=== PATIENT | male | born 1990 | race Two or more races ===

== ENCOUNTER 2022-02-03 20:54 | Emergency (ER) | payer OTHER ==
[~2022-02-03] VITALS: Ht 172.7 cm; Wt 83.9 kg
[2022-02-03] MEDS ORDERED: [UNRECOGNIZED DRUG - OTHER] (21:43)
[2022-02-03] MEDS ORDERED: SUDAFED (21:43)
[2022-02-04] MEDS ORDERED: DOLOGESIC 500-1 EACH PO (03:41)
== END 2022-02-04 04:29 ==
LOC: ER 20:54
DX: B34.8 Other viral infections of unspecified site (principal); Z20.822 Contact with and (suspected) exposure to COVID-19

== ENCOUNTER 2022-07-02 15:00 | Outpatient (CLI) | payer OTHER ==
[~2022-07-02 15:00] MED LIST: DOLOGESIC 500-1 EACH PO; SUDAFED; [UNRECOGNIZED DRUG - OTHER]
== END 2022-07-02 16:12 | disposition home or self-care (01) ==
LOC: LAB 15:00
PROVIDERS: ATTEND Obstetrics & Gynecology
DX: Z20.818 Contact with and (suspected) exposure to other bacterial communicable diseases (principal); Z20.828 Contact with and (suspected) exposure to other viral communicable diseases

== ENCOUNTER → 2024-10-25 | Emergency (ER) | payer OTHER ==
[~2024-10-25] VITALS: Ht 172.7 cm; Wt 81.6 kg
[~2024-10-25] MED LIST changes: +ACETAMINOPHEN 500 MG GEL..CAP PO ONE; +FAMOTIDINE/PF 20 MG/2 ML VIAL ONE; +ONDANSETRON HCL 2 MG/ML VIAL ONE; +ONDANSETRON ODT8 MG PO; +PEPCID AC20 MG PO
== END | disposition left against medical advice (07) ==
LOC: ER 03:31
DX: Z53.21 Procedure and treatment not carried out due to patient leaving prior to being seen by health care provider (principal)

== ENCOUNTER 2024-10-27 11:16 | Emergency (ER) | payer OTHER ==
[~2024-10-27] VITALS: Ht 175.3 cm; Wt 81.6 kg
[~2024-10-27 11:16] MED LIST changes: -ACETAMINOPHEN 500 MG GEL..CAP PO ONE; -FAMOTIDINE/PF 20 MG/2 ML VIAL ONE; -ONDANSETRON HCL 2 MG/ML VIAL ONE; -ONDANSETRON ODT8 MG PO; -PEPCID AC20 MG PO
[2024-10-27] MEDS ORDERED: ONDANSETRON HCL 2 MG/ML VIAL IV ONE (11:30)
[2024-10-27] MEDS ORDERED: ACETAMINOPHEN 500 MG GEL..CAP PO ONE (11:30)
[2024-10-27] MEDS ORDERED: 0.9 % SODIUM CHLORIDE 1,000 ML IV SCH (11:30)
[2024-10-27] MEDS ORDERED: FAMOTIDINE/PF 20 MG in 0.9 % SODIUM CHLORIDE 8 ML IV PUSH STA (11:32)
[2024-10-27 12:04] LABS: HEMATOCRIT 41.1 % (39.0-48.0); MEAN CELL VOLUME 84.6 fL (80.0-100.00); MEAN CORPUSCULAR HEMOGLOBIN 28.9 pg (27.00-32.0); MEAN CORPUSCULAR HGB CONC 34.1 g/dl (32.0-36.0); PLATELET COUNT 179 K/uL (150-450); RED BLOOD COUNT 4.86 M/uL (4.00-6.00); RED CELL DISTRIBUTION WIDTH 13.8 % (11.5-14.5)
[2024-10-27 12:52] LABS: ALBUMIN 3.5 gm/dL (3.4-5.0); BILIRUBIN TOTAL 1.25 mg/dL (0.3-1.2); CALCIUM 8.7 mg/dL (8.5-10.1); CREATININE SERUM 1.15 mg/dL (0.70-1.30); GFR 72.79; GLOBULINA 3.6 G/DL (2.4-3.5); POTASSIUM 3.69 mEq/L (3.5-5.1); TOTAL PROTEIN 7.1 gm/dL (6.4-8.2)
[2024-10-27] MEDS ORDERED: PEPCID AC20 MG PO (15:34)
[2024-10-27] MEDS ORDERED: ONDANSETRON ODT8 MG PO (15:34)
== END 2024-10-27 15:47 | disposition home or self-care (01) ==
LOC: ER 11:18
PROVIDERS: General Practice
DX: J10.1 Influenza due to other identified influenza virus with other respiratory manifestations (principal); K29.70 Gastritis, unspecified, without bleeding; Z20.822 Contact with and (suspected) exposure to COVID-19

== ENCOUNTER 2024-10-29 05:52 | Emergency (ER) | payer OTHER ==
[~2024-10-29] VITALS: Ht 172.7 cm; Wt 81.6 kg
[~2024-10-29 05:52] MED LIST changes: +ONDANSETRON ODT8 MG PO; +PEPCID AC20 MG PO
[2024-10-29] MEDS ORDERED: LEVALBUTEROL HCL 1.25 MG/3 ML SOLUTION IH STA (08:31)
[2024-10-29] MEDS ORDERED: HYDROCODONE/CHLORPHEN P-STIREX 5 ML ML PO STA (08:32)
[2024-10-29 09:15] LABS: HEMATOCRIT 38.1 % (39.0-48.0); MEAN CORPUSCULAR HGB CONC 34.1 g/dl (32.0-36.0); PLATELET COUNT 259 K/uL (150-450); RED BLOOD COUNT 4.48 M/uL (4.00-6.00); RED CELL DISTRIBUTION WIDTH 14.1 % (11.5-14.5)
[2024-10-29] MEDS ORDERED: LEVALBUTEROL HCL 1.25 MG/3 ML SOLUTION IH ONE (09:23)
[2024-10-29 09:40] LABS: ABG PH 7.414 (7.35-7.45); ABG PO2 87.9 mmHg (80-100); ABG pCO2 38.8 mmHg (35-45); BASE EXCESS -0.1 mmol/l; BICARBONATE 24.2 mmol/l (23-25); SaO2 96.8 %; Tco2 25.4 mmol/l
[2024-10-29 09:57] LABS: CALCIUM 9.3 mg/dL (8.5-10.1); CREATININE SERUM 1.14 mg/dL (0.70-1.30); GFR 73.53; POTASSIUM 3.33 mEq/L (3.5-5.1)
[2024-10-29 10:06] LABS: allen test SATISFACTORY; o2 21 %; puncture site RADIAL RIGHT
== END 2024-10-29 12:38 | disposition home or self-care (01) ==
LOC: ER 05:55
PROVIDERS: General Practice
DX: J18.8 Other pneumonia, unspecified organism (principal); J11.1 Influenza due to unidentified influenza virus with other respiratory manifestations

== ENCOUNTER 2024-10-29 23:36 | Inpatient (IN) | payer OTHER ==
[~2024-10-29] VITALS: Ht 152.4 cm; Wt 81.6 kg
--- NOTE | 2024-10-29 23:45 | NUR ---
PTE ALERTA Y ORIENTADO X3, LLEGA EN AMBULANCIA EN COMPANIA DE PARAMEDICOS. REFIERE FUE DADO DE [facility] POR PULMONIA. AL MOMENTO REFIERE DIF.RESPIRATORIA Y NAUSEAS. AL MOMENTO PTE SAT 98%. 102.3 DE TEMP. SE UBICA PTE.
[2024-10-30] MEDS ORDERED: 0.9 % SODIUM CHLORIDE 1,000 ML IV STA (01:01)
[2024-10-30] MEDS ORDERED: IPRATROPIUM/ALBUTEROL SULFATE 3 ML AMPUL.NEB IH SCH ×3 (01:02→21:00)
[2024-10-30] MEDS ORDERED: levoFLOXacin IN DEXTROSE 5 % 5 MG/ML PIGGYBAG IV STA (01:03)
[2024-10-30] MEDS ORDERED: CEFTRIAXONE SODIUM 2,000 MG VIAL IV STA (01:05)
[2024-10-30] MEDS ORDERED: ACETAMINOPHEN 500 MG GEL..CAP PO STA (01:06)
[2024-10-30] MEDS ORDERED: CEFTRIAXONE SODIUM 2,000 MG VIAL ONE (01:07)
--- NOTE | 2024-10-30 01:09 | NUR ---
PTE ALERTA Y ORIENTADO X3, JANA SALEEM ORIENTA SOBRE TX MEDICO, EL MISMO REIFERE ENTENDER Y ACEPTAR. CANALIZA Y COLECTA MUESTRAS DE LAB BAJO MEDIDAS ASEPTICAS. ADMINISTRA MEDS MARK ORDEN MEDICA Y PTE NO PRESENTA REACCION. SE NOTIFICA ABG Y TERAPIAS A PERSONAL DE TERAPIA RESPIRATORIA . PEND A REALIZAR XRAY.
[2024-10-30] MEDS ORDERED: ACETAMINOPHEN 500 MG GEL..CAP PO ONE (01:23)
[2024-10-30] MEDS ORDERED: IPRATROPIUM/ALBUTEROL SULFATE 3 ML AMPUL.NEB IH ONE ×4 (01:27→16:33)
[2024-10-30 01:44] LABS: ABG PH 7.459 (7.35-7.45); ABG PO2 63.4 mmHg (80-100); ABG pCO2 33.4 mmHg (35-45); BASE EXCESS 0.1 mmol/l; BICARBONATE 23.2 mmol/l (23-25); SaO2 93.2 %; Tco2 24.2 mmol/l
[2024-10-30 01:51] LABS: INR 1.07; PARTIAL THROMBOPLASTIN TIME 28.9 SECONDS (22.0-34.0); PROTHROMBIN TIME 11.6 SECONDS (9.0-11.5)
[2024-10-30 01:58] LABS: ALBUMIN 3.2 gm/dL (3.4-5.0); BILIRUBIN TOTAL 0.61 mg/dL (0.3-1.2); CALCIUM 9.3 mg/dL (8.5-10.1); CREATININE SERUM 1.3 mg/dL (0.70-1.30); GFR 63.19; GLOBULINA 4.5 G/DL (2.4-3.5); POTASSIUM 3.61 mEq/L (3.5-5.1); TOTAL PROTEIN 7.7 gm/dL (6.4-8.2)
[2024-10-30 02:00] LABS: proBNP 52 pg/mL (0-39)
[2024-10-30 02:09] LABS: TROPONIN I hs < 3.0 PG/ML (42.2-82.3)
[2024-10-30 02:10] LABS: HEMATOCRIT 37.2 % (39.0-48.0); HEMOGLOBIN 12.7 g/dL (13-16.00); MEAN CELL VOLUME 84.9 fL (80.0-100.00); MEAN CORPUSCULAR HGB CONC 34.2 g/dl (32.0-36.0); PLATELET COUNT 269 K/uL (150-450); RED BLOOD COUNT 4.38 M/uL (4.00-6.00); RED CELL DISTRIBUTION WIDTH 13.6 % (11.5-14.5)
[2024-10-30 02:32] LABS: ERYTHROCYTE SEDIMENTATION RATE 42 mm/hr
[2024-10-30 03:08] LABS: allen test SATISFACTORY; o2 21 %; puncture site RADIAL RIGHT
[2024-10-30] MEDS ORDERED: 0.9 % SODIUM CHLORIDE 1,000 ML IV SCH (17:45)
[2024-10-30] MEDS ORDERED: GUAIFEN/DEXTROMETHORPHAN/PE 10 ML BLIST.PACK PO SCH (17:48)
[2024-10-30] MEDS ORDERED: FAMOTIDINE/PF 20 MG in 0.9 % SODIUM CHLORIDE 8 ML IV PUSH SCH (17:49)
[2024-10-30] MEDS ORDERED: METHYLPREDNISOLONE SOD SUCC 40 MG VIAL IV SCH (18:00)
[2024-10-30] MEDS ORDERED: ONDANSETRON HCL 4 MG in 0.9 % SODIUM CHLORIDE 50 ML IV PRN (18:00)
[2024-10-30] MEDS ORDERED: ACETAMINOPHEN 500 MG GEL..CAP PO PRN (18:00)
[2024-10-30 21:18] VITALS: BP 120/73; O2SAT 97
[2024-10-30 21:39] LABS: URINE APPEARANCE Clear; URINE BILIRRUBIN Negative (NEGATIVE); URINE BLOOD Negative; URINE COLOR Yellow; URINE GLUCOSE Negative (NEGATIVE); URINE KETONE Negative (NEGATIVE); URINE LEUKOCYTE Negative; URINE NITRATE Negative; URINE PROTEIN Trace (NEGATIVE)
[2024-10-30 21:40] LABS: URINE BACTERIA 7.3 uL (0.0-1933); URINE EPITHELIAL CELLS 2.3 uL (0.0-38.8); URINE RBC 3.6 uL (0.0-20.8); URINE WBC 3.4 uL (0.0-23.2)
[2024-10-30 21:48] LABS: URINE CAST 0.44 uL (0.0-1.40)
[2024-10-31 02:00] VITALS: BP 107/61
[2024-10-31 07:45] VITALS: BP 120/74
[2024-10-31] MEDS ORDERED: levoFLOXacin IN DEXTROSE 5 % 150 ML IV SCH (09:00)
[2024-10-31] MEDS ORDERED: BUDESONIDE 0.5 MG/2 ML AMPUL.NEB IH NR (14:00)
[2024-10-31 16:38] VITALS: BP 108/67; O2SAT 100
[2024-10-31] MEDS ORDERED: BUDESONIDE 0.5 MG/2 ML AMPUL.NEB IH SCH (21:00)
[2024-11-01 01:59] VITALS: BP 105/57
[2024-11-01 08:38] VITALS: BP 117/75
[2024-11-01 16:17] VITALS: BP 116/71; O2SAT 96
[2024-11-02] VITALS: BP 102/59; O2SAT 96
[2024-11-02 06:12] LABS: HEMATOCRIT 37.6 % (39.0-48.0); HEMOGLOBIN 12.9 g/dL (13-16.00); MEAN CELL VOLUME 84.8 fL (80.0-100.00); MEAN CORPUSCULAR HGB CONC 34.2 g/dl (32.0-36.0); PLATELET COUNT 409 K/uL (150-450); RED BLOOD COUNT 4.43 M/uL (4.00-6.00); RED CELL DISTRIBUTION WIDTH 13.6 % (11.5-14.5)
[2024-11-02 09:38] VITALS: BP 114/75; O2SAT 99
[2024-11-02] MEDS ORDERED: BENZONATATE 100 MG CAPSULE PO PRN (12:45)
[2024-11-02 17:07] VITALS: BP 122/76; O2SAT 97
[2024-11-03 02:25] VITALS: BP 112/64; O2SAT 99
[2024-11-03 02:31] VITALS: BP 131/60; O2SAT 99
[2024-11-03 08:31] VITALS: BP 136/88
== END 2024-11-03 14:35 | disposition home or self-care (01) | DRG 195 ==
LOC: ER 23:36 → MEDI 10-30 18:20
PROVIDERS: General Practice; Internal Medicine Infectious Disease; ADMIT Internal Medicine; ATTEND Internal Medicine
DX: J18.9 Pneumonia, unspecified organism (principal); R09.02 Hypoxemia; J10.1 Influenza due to other identified influenza virus with other respiratory manifestations; K29.70 Gastritis, unspecified, without bleeding